=== PATIENT | female | born 1960 | race Caucasian/White ===

== ENCOUNTER 2018-01-09 14:21 | Inpatient (IN) | payer BC, OTHER ==
[~2018-01-09] VITALS: Ht 162.6 cm; Wt 64.9 kg
--- NOTE | ~2018-01-09 | EKG ---
[place] [address] [address] [place] [address] ELECTROCARDIOGRAM REPORT Name: IVIS RUEDA Room #: 411-P [facility] IN [facility].#: [id number] Admission: 01/09/18 Attend Phys: Dallas Mcguire MD Discharge: Date of : 56 Report #: [id number] THIS REPORT FOR: //name// [facility] ED Test Date: 2018-01-09 Test Time: 16:15:26 Pat Name: IVIS RUEDA Department: Room: Gender: F Director Economic: ÁNGEL : 1960 Requested By: Elena Dee Order Number: [id number] MD: Yossi Marrero Measurements Intervals [place] Rate: 96 P: 47 ND: 168 QRS: 22 QRSD: 107 T: 51 QT: 407 QTc: 515 Interpretive Statements Sinus rhythm Atrial premature complexes Compared to ECG 09/24/2015 05:40:43 Atrial premature complex(es) now present Prolonged QT interval no longer present Electronically Signed On 01-10-2018 7:36:12 CDT by Yossi Marrero [email or web address] <ELECTRONICALLY SIGNED> By: Yossi Marrero MD, [facility] 01/10/18 0736 1615 1615 Yossi Marrero MD, [facility] /EPI
--- NOTE | ~2018-01-09 | P ---
[facility] [place] [address] PROCEDURE REPORT Name: IVIS RUEDA Room #: 411-P [facility] IN .R.#: [id number] Admission: 01/09/18 Attend Phys: Dallas Mcguire MD Discharge: 01/12/18 Date of : 56 Report #: [id number] THIS REPORT FOR: //name// CC: Joel Mcguire MD [facility] DATE OF SERVICE: 01/10/2018 PROCEDURE PERFORMED: Upper endoscopy with esophageal dilation. HISTORY OF PRESENT ILLNESS: The patient is a 57-year-old female who is well known to me with a history of Crohn's disease who has been complaining of increasing dysphagia primarily for the last 10 days, does report some mild odynophagia at times. She denies any diarrhea. She does complain of constipation. Denies any blood in her stools. She is taking Imuran for her Crohn's disease. She is also on Coumadin. INR is 3.1. The patient was admitted yesterday through the Emergency Room for above complaints. A CT scan of her abdomen and pelvis was performed as well, which shows postoperative changes of partial bowel resection, but otherwise normal esophagus and stomach were normal. Fatty infiltration of the liver was noted without any masses. Spleen was unremarkable. Previous post-cholecystectomy changes were noted. Plan is for EGD. DESCRIPTION OF PROCEDURE: The risks and benefits of the procedure were explained to the patient, those risks including but not limited to bleeding, perforation, the risk of sedation. She understood these risks and gave informed consent. I also discussed with the patient performing a digital rectal exam once under anesthesia as she has a known history of anal stricture due to her Crohn's disease and she agreed to this as well. Next, using a standard Olympus upper endoscope, the scope was placed in the patient's mouth and advanced under direct vision through the esophagus, stomach and into the second portion of the duodenum. Larynx was normal in appearance. The upper and mid esophagus was normal. In the distal esophagus, a very mild Schatzki's ring was noted. No esophagitis. Upon entering the stomach, a small hiatal hernia was noted. There were a few gastric polyps, I was not able to take biopsies today due to the patient being on Coumadin. There was some mild diffuse gastritis in the gastric antrum. No ulcerations or bleeding. Pylorus was normal and patent. The duodenal bulb, first and second portion were all normal. The scope was then brought back up into the patient's stomach and a Savary guidewire was inserted through the scope, leaving the guidewire in place. Next, the scope was then withdrawn and a 48-Danish dilation of her esophagus was performed without difficulty. The wire and dilator were removed. The scope was reintroduced into [address] [address] PROCEDURE REPORT Name: RUEDAIVIS Room #: 411-P [facility] IN .R.#: [id number] Admission: 01/09/18 Attend Phys: Dallas Mcguire MD Discharge: 01/12/18 Date of : 56 Report #: [id number] the patient's stomach. There was no evidence of mucosal tear or bleeding after dilation. The scope was then withdrawn and the procedure terminated. I then proceeded with a digital rectal exam, although she has a mild stenosis of her anal canal, this is much improved than from previous exams. There was no evidence of fecal impaction in the rectum. The patient tolerated the procedure well. IMPRESSION: 1. Mild Schatzki's ring. 2. Small hiatal hernia. 3. Gastric polyps. 4. Mild gastritis. 5. Mild anal stricture on digital exam as described above. RECOMMENDATIONS: 1. Observe the patient post dilation. 2. Continue PPI therapy. 3. We will restart diet. If the patient has continued symptoms of dysphagia, then we will proceed with an upper GI or video swallow for further evaluation. Thank you for allowing me to participate in her care. <ELECTRONICALLY SIGNED> By: Joel Heaton MD 01/13/18 1538 1241 1805 Joel Heaton MD /nt
[~2018-01-09 14:21] MED LIST: ACIPHEX 20 MG T20 MG PO; AMITRIPTYLINE H25 M2 PO; ANALPRAM HC 2.530 GM RECTAL; ASPIR 8181 MG PO; CALCIUM 600 +1 EAC1 PO; CIPROFLOXACIN500 M1 PO; COUMADIN 3 MG TA3 M1 PO; DIAZEPAM 5 MG5 M1 PO; FENTANYL 1100 MCG/HR TOP; FENTANYL PA50 MCG/HR TRANSDERM; HYDROCODON-ACE1 EAC1 PO; HYDROCODONE-APA1 TA1 PO; IMURAN 50MG TAB50 M1 PO; KLOR-CON 1010 MEQ PO; LEVOTHYROXINE0.05 MG PO; LOMOTIL TABLET1 EACH PO; MAGNESIUM250 M1 PO; METHOCARBAMOL750 MG PO; NYSTATIN 1100000 U/M SW&SWALLOW; ONDANSETRON HCL4 M2 PO; PHENERGAN 25 MG25 M1 PO; POTASSIUM20 PO; PREDNISONE 10 M10 MG PO; ROBAXIN 750 MG750 M1 PO; SILVERDENE CREAM; TYLENOL325 MG PO; WELCHOL 625 MG625 M1 PO
[2018-01-09 15:21] VITALS: BP 141/78
[2018-01-09 18:24] LABS: ABSOLUTE NEUTROPHILS 5.3 thou/uL (1.4-8.2); EOSINOPHILS 0.3 % (0.0-3.0); HEMATOCRIT 41.6 % (37.0-47.0); HEMOGLOBIN 13.7 gm/dL (12.0-15.0); LYMPHOCYTES 14.9 % (24.0-44.0); MCH 30.6 pg (26.0-34.0); MCV 92.8 fL (80.0-100.0); MONOCYTES 6.3 % (1.0-8.0); PLATELET COUNT 200 thou/uL (150-400); POLYS 77.5 % (36.0-66.0); RBC 4.49 mil/uL (4.20-5.00); RDW 14.7 % (10.5-14.5); WBC 6.9 thou/uL (4.0-11.0)
[2018-01-09 18:35] LABS: ANION GAP 21 mmol/L (7-16); CHLORIDE 98 mmol/L (98-107); CO2 13 mmol/L (21-32); GLUCOSE 55 mg/dL (74-106); LIPASE 147 U/L (73-393); POTASSIUM 4.9 mmol/L (3.5-5.1); SODIUM 132 mmol/L (136-145)
[2018-01-09 19:08] LABS: TOTAL PROTEIN 7.3 g/dL (6.4-8.2)
[2018-01-09 19:51] LABS: CREATININE 0.9 mg/dL (0.6-1.0); POTASSIUM 4.1 mmol/L (3.5-5.1)
[2018-01-09 19:57] LABS: ALBUMIN 3.6 g/dL (3.4-5.0); TOTAL BILIRUBIN 0.4 mg/dL (<0.1-1.0); TOTAL PROTEIN 7.3 g/dL (6.4-8.2)
[2018-01-09 20:19] VITALS: BP 143/73
[2018-01-09 20:58] VITALS: BP 143/73
[2018-01-09 21:22] VITALS: BP 163/83
[2018-01-10] VITALS (8 sets, daily range): BP systolic 115–157; BP diastolic 58–102
[2018-01-10 03:47] LABS: URINE BILIRUBIN NEGATIVE (Negative); URINE BLOOD NEGATIVE (Negative); URINE CLARITY CLEAR; URINE COLOR YELLOW; URINE GLUCOSE-RANDOM* NEGATIVE (Negative); URINE KETONES 3+ (Negative); URINE LEUKOCYTES-REFLEX NEGATIVE (Negative); URINE NITRITE-REFLEX NEGATIVE (Negative); URINE PROTEIN (DIPSTICK) NEGATIVE (Negative); URINE SPECIFIC GRAVITY <= 1.005 (1.005-1.035); URINE UROBILINOGEN 0.2 E.U./dl (0.2-1.0)
[2018-01-10 07:00] LABS: CALCIUM 8.8 mg/dL (8.5-10.1); CREATININE 0.9 mg/dL (0.6-1.0); POTASSIUM 4.1 mmol/L (3.5-5.1)
[2018-01-10 07:13] LABS: APTT 46.6 Seconds (24.5-32.8); INR 3.1; PROTIME 31.2 Seconds (9.3-11.4)
[2018-01-11 04:00] VITALS: BP 115/65
[2018-01-11 09:00] VITALS: BP 115/65
[2018-01-11 20:24] VITALS: BP 114/54
[2018-01-12 04:56] VITALS: BP 112/56
[2018-01-12 06:03] LABS: HEMATOCRIT 33.6 % (37.0-47.0); MCH 31.3 pg (26.0-34.0); MCHC 34.8 g/dL (28.0-37.0); RBC 3.73 mil/uL (4.20-5.00); RDW 14.5 % (10.5-14.5); WBC 4.4 thou/uL (4.0-11.0)
[2018-01-12 06:12] LABS: HEMOGLOBIN 11.7 gm/dL (12.0-15.0)
[2018-01-12 06:18] LABS: INR 1.6
[2018-01-12 06:20] LABS: ALBUMIN 2.7 g/dL (3.4-5.0); CALCIUM 7.9 mg/dL (8.5-10.1); CREATININE 0.8 mg/dL (0.6-1.0); TOTAL BILIRUBIN 0.2 mg/dL (<0.1-1.0); TOTAL PROTEIN 5.8 g/dL (6.4-8.2)
[2018-01-12 06:21] LABS: POTASSIUM 2.8 mmol/L (3.5-5.1)
[2018-01-12 08:37] VITALS: BP 144/77
[2018-01-12 18:28] VITALS: BP 144/77
== END 2018-01-12 19:55 | disposition home or self-care (01) | DRG 387 ==
LOC: ER 14:21 → EROBS 20:00 → 4N 20:00
PROVIDERS: Emergency Medicine; Nurse Practitioner; Nurse Practitioner Family; Physician Assistant
PROC: 0D758ZZ Dilation of Esophagus, Via Natural or Artificial Opening Endoscopic (ICD-10-PCS; principal; 2018-01-10)
DX: K50.90 Crohn's disease, unspecified, without complications (principal); K29.70 Gastritis, unspecified, without bleeding; K62.4 Stenosis of anus and rectum; K44.9 Diaphragmatic hernia without obstruction or gangrene; Z96.653 Presence of artificial knee joint, bilateral; G89.29 Other chronic pain; M54.9 Dorsalgia, unspecified; M81.0 Age-related osteoporosis without current pathological fracture; F32.9 Major depressive disorder, single episode, unspecified; F41.9 Anxiety disorder, unspecified; E03.9 Hypothyroidism, unspecified; R47.02 Dysphasia; K22.2 Esophageal obstruction; K31.7 Polyp of stomach and duodenum; K21.9 Gastro-esophageal reflux disease without esophagitis; K59.00 Constipation, unspecified; R13.10 Dysphagia, unspecified; I34.1 Nonrheumatic mitral (valve) prolapse; Z86.73 Personal history of transient ischemic attack (TIA), and cerebral infarction without residual deficits; Z79.82 Long term (current) use of aspirin; Z90.49 Acquired absence of other specified parts of digestive tract; Z88.8 Allergy status to other drugs, medicaments and biological substances; Z79.899 Other long term (current) drug therapy
CPT/HCPCS: 10091; 62110; 62900; 70005

== ENCOUNTER 2018-12-12 08:56 | Emergency (ER) | payer BC, OTHER ==
[~2018-12-12] VITALS: Ht 162.6 cm; Wt 73.5 kg
[2018-12-12 09:29] LABS: URINE BLOOD NEGATIVE (Negative); URINE CLARITY CLEAR; URINE COLOR YELLOW; URINE GLUCOSE-RANDOM* NEGATIVE (Negative); URINE KETONES 2+ (Negative); URINE LEUKOCYTES NEGATIVE (Negative); URINE NITRITE NEGATIVE (Negative); URINE PROTEIN (DIPSTICK) TRACE (Negative); URINE SPECIFIC GRAVITY >= 1.030 (1.005-1.035); URINE UROBILINOGEN 0.2 E.U./dl (0.2-1.0)
[2018-12-12] MEDS ORDERED: ACIPHEX 20 MG T20 MG PO (09:30)
[2018-12-12] MEDS ORDERED: LIPITOR 20 MG T20 M1 PO (09:32)
[2018-12-12 09:33] LABS: ICTOTEST (BILI CONFIRMATORY) Negative (Negative); URINE BILIRUBIN NEGATIVE (Negative)
[2018-12-12 09:40] LABS: HEMATOCRIT 42.1 % (37.0-47.0); MCH 29.8 pg (26.0-34.0); MCHC 33.3 g/dL (28.0-37.0); MCV 89.6 fL (80.0-100.0); PLATELET COUNT 190 thou/uL (150-400); RDW 15.3 % (10.5-14.5); WBC 5.1 thou/uL (4.0-11.0)
[2018-12-12 09:47] LABS: CALCIUM 9.5 mg/dL (8.5-10.1)
[2018-12-12 09:53] LABS: ALBUMIN 3.9 g/dL (3.4-5.0); TOTAL BILIRUBIN 0.6 mg/dL (<0.1-1.0); TOTAL PROTEIN 7.8 g/dL (6.4-8.2)
[2018-12-12 10:23] LABS: ABSOLUTE NEUTROPHILS 4.2 thou/uL (1.4-8.2); ANISOCYTOSIS 1+
[2018-12-12 10:26] LABS: INR 1.3; PROTIME 13.5 Seconds (9.3-11.4)
[2018-12-12] MEDS ORDERED: PREDNISONE 5 MG5 MG PO (13:34)
[2018-12-12 13:42] VITALS: BP 144/75
== END 2018-12-12 13:42 | disposition home or self-care (01) ==
LOC: ER 08:56
PROVIDERS: Emergency Medicine
DX: K50.90 Crohn's disease, unspecified, without complications (principal); K22.2 Esophageal obstruction; M54.9 Dorsalgia, unspecified; G89.29 Other chronic pain; M81.0 Age-related osteoporosis without current pathological fracture; F32.9 Major depressive disorder, single episode, unspecified; F41.9 Anxiety disorder, unspecified; E03.9 Hypothyroidism, unspecified; Z86.73 Personal history of transient ischemic attack (TIA), and cerebral infarction without residual deficits; Z88.1 Allergy status to other antibiotic agents; Z88.8 Allergy status to other drugs, medicaments and biological substances; Z90.49 Acquired absence of other specified parts of digestive tract; Z90.89 Acquired absence of other organs; Z96.653 Presence of artificial knee joint, bilateral

== ENCOUNTER 2019-02-27 10:54 | Inpatient (IN) | payer BC, OTHER ==
[~2019-02-27] VITALS: Ht 162.6 cm; Wt 70.3 kg
[~2019-02-27 10:54] MED LIST changes: +LIPITOR 20 MG T20 M1 PO; +PREDNISONE 5 MG5 MG PO
[2019-02-27 10:55] VITALS: BP 159/91
[2019-02-27 11:20] LABS: URINE BILIRUBIN NEGATIVE (Negative); URINE BLOOD NEGATIVE (Negative); URINE CLARITY CLEAR; URINE COLOR YELLOW; URINE GLUCOSE-RANDOM* NEGATIVE (Negative); URINE KETONES NEGATIVE (Negative); URINE LEUKOCYTES-REFLEX NEGATIVE (Negative); URINE NITRITE-REFLEX NEGATIVE (Negative); URINE PROTEIN (DIPSTICK) NEGATIVE (Negative); URINE SPECIFIC GRAVITY <= 1.005 (1.005-1.035); URINE UROBILINOGEN 0.2 E.U./dl (0.2-1.0)
[2019-02-27 12:16] LABS: ABSOLUTE NEUTROPHILS 2.7 thou/uL (1.4-8.2); BASOPHILS 1.7 % (0.0-2.0); EOSINOPHILS 0.4 % (0.0-3.0); HEMATOCRIT 37.2 % (37.0-47.0); HEMOGLOBIN 12.6 gm/dL (12.0-15.0); MCH 30.7 pg (26.0-34.0); MCV 90.1 fL (80.0-100.0); MONOCYTES 7.3 % (1.0-8.0); PLATELET COUNT 192 thou/uL (150-400); POLYS 70.6 % (36.0-66.0); RBC 4.13 mil/uL (4.20-5.00); RDW 16.4 % (10.5-14.5); WBC 3.8 thou/uL (4.0-11.0)
[2019-02-27 12:25] LABS: CALCIUM 9.2 mg/dL (8.5-10.1); CREATININE 0.9 mg/dL (0.6-1.0); POTASSIUM 3.8 mmol/L (3.5-5.1)
[2019-02-27 12:26] LABS: INR 2.3; PROTIME 24.1 Seconds (9.3-11.4)
[2019-02-27 12:31] LABS: ALBUMIN 3.7 g/dL (3.4-5.0); TOTAL BILIRUBIN 0.5 mg/dL (<0.1-1.0); TOTAL PROTEIN 6.8 g/dL (6.4-8.2)
[2019-02-27 15:26] LABS: ALBUMIN 3.7 g/dL (3.4-5.0); TOTAL PROTEIN 6.8 g/dL (6.4-8.2)
[2019-02-27 15:51] LABS: TSH 1.489 uIU/mL (0.358-3.740)
[2019-02-27 23:47] VITALS: BP 153/103
[2019-02-28 00:16] VITALS: BP 141/89
[2019-02-28 01:51] VITALS: BP 141/72
--- NOTE | 2019-02-28 03:30 | NUR ---
patient admitted for abd pain d/t chrohns disease. patient denied pain or discomfort during assessment. patient ambulates slowly in the room with steady gaits. patient refused scds. patient refused hs tray d/t poor appetite. patient encouraged fluids. patient requested tylenol d/t headache at around 0300, called ceo new order of tylenol. patient in bed asleep at this time breathing regular and unlaboured.
[2019-02-28 04:10] VITALS: BP 140/79
[2019-02-28 05:42] LABS: HEMATOCRIT 40.7 % (37.0-47.0); HEMOGLOBIN 13.7 gm/dL (12.0-15.0); MCH 30.6 pg (26.0-34.0); MCHC 33.7 g/dL (28.0-37.0); MCV 90.7 fL (80.0-100.0); RBC 4.49 mil/uL (4.20-5.00); RDW 16.6 % (10.5-14.5); WBC 4.6 thou/uL (4.0-11.0)
[2019-02-28 06:06] LABS: CALCIUM 9.3 mg/dL (8.5-10.1); CREATININE 0.9 mg/dL (0.6-1.0); MAGNESIUM 1.9 mg/dL (1.8-2.4); POTASSIUM 3.6 mmol/L (3.5-5.1)
[2019-02-28 07:21] VITALS: BP 134/72
--- NOTE | 2019-02-28 08:28 | 2DMMODE ---
[facility] [address] [place] [address] 2 D/M-MODE ECHOCARDIOGRAM Name: IVIS RUEDA Room #: 450-P [facility] IN [facility].#: [id number] ������������� Admission: 02/27/19 ������������� Attend Phys: Stiven Rowan, Discharge: ��� ������������� ��� Date of : 56 Date of Service: 02/28/19 0828 �� Report #: [id number] �������� ��������������������������������������������[id number] THIS REPORT FOR: //name// APPROVED REPORT Study performed: 02/28/2019 06:18:37 EXAM: Comprehensive 2D, Doppler, and color-flow Echocardiogram Patient Location: Bedside Room #: [facility] Status: routine BSA: 1.76 HR: 68 bpm BP: 140/79 mmHg Rhythm: NSR Other Information Study Quality: Adequate Indications History of mitral valve prolapse, possible SVC occlusion. 2D Dimensions RVDd: 23.08 mm IVSd: 10.21 (7-11mm) LVOT Diam: 20.38 (18-24mm) LVDd: 41.04 mm PWd: 8.14 (7-11mm) Ascending Ao: 32.38 (22-36mm) LVDs: 23.81 (25-40mm) Aortic Root: 32.58 mm Volumes Left Atrial Volume (Systole) Single Plane 4CH: 23.46 mL Single Plane 2CH: 31.24 mL LA ESV Index: 17.00 mL/m2 Aortic Valve AoV Peak Martin.: 1.35 m/s AO Peak Gr.: 7.32 mmHg LVOT Max P.36 mmHg LVOT Max V: 1.26 m/s LINETTE Vmax: 3.04 cm2 Mitral Valve E/A Ratio: 0.8 MV Decel. Time: 272.91 ms MV E Max Martin.: 0.67 m/s [facility] [employer] [address] [place] [address] [place] [address] 2 D/M-MODE ECHOCARDIOGRAM Name: IVIS RUEDA Room #: [address] [place] [address] IN [facility].#: [id number] ������������� Admission: 02/27/19 ������������� Attend Phys: Stiven Rowan, Discharge: ��� ������������� ��� Date of : 56 Date of Service: 02/28/19 0828 �� Report #: [id number] �������� ��������������������������������������������[id number] MV A Martin.: 0.83 m/s MV PHT: 79.15 ms IVRT: 79.58 ms Pulmonary Valve PV Peak Martin.: 1.00 m/s PV Peak Gr.: 3.99 mmHg Pulmonary Vein P Vein S: 0.52 m/s P Vein A: 0.32 m/s P Vein D: 0.35 m/s P Vein A Dur.: 121.1 msec P Vein S/D Ratio: 1.49 Tricuspid Valve TR Peak Martin.: 1.76 m/s RAP Estimate: 5.00 mmHg TR Peak Gr.: 12.37 mmHg PA Pressure: 17.00 mmHg Left Ventricle The left ventricle is normal size. There is normal LV segmental wall motion. There is normal left ventricular wall thickness. Left ventricular systolic function is normal. LVEF is 60-65%. Mild diastolic dysfunction Right Ventricle The right ventricle is normal size. The right ventricular systolic function is normal. Atria The left atrium size is normal. The right atrium size is normal. Aortic Valve Aortic valve is trileaflet. No aortic regurgitation is present. There is no aortic valvular stenosis. Mitral Valve Minimal mitral annular calcification. There is no mitral valve regurgitation noted. There is no evidence of mitral valve prolapse. Tricuspid Valve The tricuspid valve is normal in structure. Trace tricuspid regurgitation. Estimated PAP is 17mmHg. Pulmonic Valve Pulmonic valve is not well visualized. There is no pulmonic valvular [address] [address] 2 D/M-MODE ECHOCARDIOGRAM Name: IVIS RUEDA Joe Room #: 450-P [facility] IN [facility]#: [id number] ������������� Admission: 02/27/19 ������������� Attend Phys: Stiven Rowan, Discharge: ��� ������������� ��� Date of : 56 Date of Service: 02/28/19 0828 �� Report #: [id number] �������� ��������������������������������������������[id number] regurgitation noted. Great Vessels The aortic root is normal in size. The ascending aorta is normal in size. IVC is normal in size and collapses >50% with inspiration. Pericardium There is no pericardial effusion. <Conclusion> Left ventricular systolic function is normal. LVEF is 60-65%. Normal LV segmental wall motion. Mild diastolic dysfunction Aortic valve is trileaflet. No aortic regurgitation. Minimal mitral annular calcification. No mitral valve regurgitation. Trace tricuspid regurgitation. Estimated pulmonary artery pressure of 17mmHg. There is no pericardial effusion. ��������������������������������������������� <ELECTRONICALLY SIGNED> ���������������������������������������� By: Yossi Marrero MD, [facility] ��������������������������������������������� 02/28/19827 7 7 Yossi Marrero MD, FAC /INF
--- NOTE | 2019-02-28 09:56 | NUR ---
ORDER RECEIVED FOR OT EVAL AND TREAT. PATIENT DECLINES ACUTE OT STATING THAT SHE IS INDEPENDENT WITH SELF CARE AND FUNCTIONAL MOBILITY. ACCORDING TO PT AND NURSING NOTES, PT HAS BEEN UP AD LAINE IN ROOM WITH GOOD SAFETY. DISCHARGE FROM ACUTE OT 02/28/2019
[2019-02-28 12:10] LABS: INR 1.7; PROTIME 17.4 Seconds (9.3-11.4)
--- NOTE | 2019-02-28 12:21 | NUR ---
ORDERS RECEIVED FOR PT EVAL AND TREAT. ENTERED ROOM TO SPEAK WITH Pt. Pt HAS BEEN UP AD LAINE TO BATHROOM WITHOUT DIFFICULTIES. COMMODE NEARBY BED FOR EMERGENCIES, Pt STATED SHE SOMETIMES HAS TO GO QUICKLY. HX OF CROHNS DISEASE FOR THE PAST 36 YEARS. Pt STATED SHE DOES NOT WORK. LIVES WITH IN HOME WITH 8-10 STEPS TO ENTER FROM GARAGE AND 10-12 STEPS UP TO BEDROOM AND BATHROOM. AMBULATORY WITHOUT GAIT AIDS. INDEP WITH ADLs. REPORTED NO RECENT FALLS. Pt STATED, I DON'T NEED PHYSICAL THERAPY. THIS TIME I GOT HERE BEFORE IT GOT TOO BAD. ENCOURAGED Pt TO AMBULATE IN HALLWAYS TOLERATED FOR INCREASED ACTIVITY. Pt VERBALIZED UNDERSTANDING. NO ACUTE PT NEEDS IDENTIFIED AND Pt DECLINING PT SERVICES. ACUTE PT TO SIGN OFF. IF Pt EXPERIENCES DECLINE IN FUNCTIONAL MOBILITY, ENDURANCE, BALANCE, ETC, PLEASE CONSIDER RE-CONSULTING PT.
[2019-02-28 14:44] VITALS: BP 139/61
[2019-02-28] MEDS ORDERED: COUMADIN 3 MG TA3 M1 PO (15:11)
--- NOTE | 2019-02-28 20:23 | NUR ---
Assumed pt care this am, refused her medication in the am and wanted to talk to the doctor prior to receiving them. Pt is able to ambulate in her room with a steady gait. Pt has poor appetite and did not comsume most of her meals. Pt was placed on clear liquids by GI and to be NPO after midnight to night for her colonoscopy tomorrow. Bowel prep done. Pt has been passing bright yellow liquid stools. No other signs of distress have been noted or verbalized, POC rollyweshaneka. Consent signed for the procedure tomorrow.
[2019-03-01 05:58] LABS: HEMATOCRIT 38.7 % (37.0-47.0); HEMOGLOBIN 13.1 gm/dL (12.0-15.0); MCH 30.2 pg (26.0-34.0); MCHC 33.8 g/dL (28.0-37.0); MCV 89.4 fL (80.0-100.0); RBC 4.33 mil/uL (4.20-5.00); RDW 16.5 % (10.5-14.5); WBC 8.3 thou/uL (4.0-11.0)
[2019-03-01 06:06] LABS: CALCIUM 9.4 mg/dL (8.5-10.1); CREATININE 0.9 mg/dL (0.6-1.0); MAGNESIUM 2.1 mg/dL (1.8-2.4); POTASSIUM 3.3 mmol/L (3.5-5.1)
[2019-03-01 06:10] LABS: INR 1.6; PROTIME 16.5 Seconds (9.3-11.4)
[2019-03-01 07:59] VITALS: BP 138/74
--- NOTE | 2019-03-01 09:15 | NUR ---
PROGRESS PT A/O X4 UP WITH SBA, IV SL FLUSHES WITHOUT DIFFICULTY. COMPLETED 90% OF BOWEL PREP STOOL IS WATER CLEAR WITH TINGE OF YELLOW. PT DENIES PAIN VOIDING QS NPO AFTER MIDNIGHT VSS CONTINUE POC.
[2019-03-01 13:49] VITALS: BP 138/74
[2019-03-01 15:42] VITALS: BP 138/74
[2019-03-01 15:47] VITALS: BP 127/65
--- NOTE | 2019-03-01 16:47 | NUR ---
PT ADMITTED RELATED TO CHRONS. CM REVIEWED CHART AND SPOKE WITH CARE TEAM. CM MET WITH PT AT BEDSIDE THIS DAY. PT IS A&O X4. CM ROLE INTRODUCED. PT INDICATED SHE LIVES IN A HOUSE WITH HER SPOUSE WITH 10 STEPS TO ENTER AND NO STEPS INSIDE. 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 PT INDICATED NO DME OR HH HX. PT STATED SHE PLANS TO RETURN HOME ONCE MEDICALLY STABLE. CM TO TO FOLLOW INDICATED WITH DC PLANNING.
[2019-03-01 19:23] VITALS: BP 136/72
[2019-03-02 05:21] LABS: HEMATOCRIT 34.6 % (37.0-47.0); HEMOGLOBIN 11.8 gm/dL (12.0-15.0); MCHC 34.2 g/dL (28.0-37.0); MCV 90.9 fL (80.0-100.0); RBC 3.8 mil/uL (4.20-5.00); RDW 16.5 % (10.5-14.5); WBC 8.6 thou/uL (4.0-11.0)
[2019-03-02 05:32] LABS: CALCIUM 8.4 mg/dL (8.5-10.1); CREATININE 0.8 mg/dL (0.6-1.0); MAGNESIUM 1.9 mg/dL (1.8-2.4); POTASSIUM 3.6 mmol/L (3.5-5.1)
--- NOTE | 2019-03-02 08:31 | NUR ---
PROGRESS PT A/O X4 UP AD LAINE, LUNGS CLEAR ABDOMEN SOFT AND NON TENDER, PASSING FLATUS AND URINATING QS. TOLERATING SOFT FIBER RESTRICTED DIET, SOLUMEDROL CONTINUES, IVF'S INFUSING TO MAINTAIN HYDRATION. SKIN C/D/I NO AREAS OF BREAKDOWN NOTED. PLANS TO DC HOME TODAY.
--- NOTE | 2019-03-02 08:43 | P ---
[facility] [place] [address] PROCEDURE REPORT Name: IVIS RUEDA Room #: 450-P [facility] IN M.R.#: [id number] Admission: 02/27/19 ������������������ Attend Phys: Stiven Rowan MD Discharge: ������������������ Date of : 56 Report #: [id number] THIS REPORT FOR: //name// CC: Mouna Rowan MD DATE OF SERVICE: 03/01/2019 DIAGNOSTIC COLONOSCOPY She is a patient of Dr. Mouna Cabral and Dr. Stiven Rowan. INDICATIONS FOR PROCEDURE: This patient has what appears to be an apple core lesion seen in the sigmoid colon on CT scan. She has not had a scope for about 4-5 years. She has a history of Crohn's disease. She has had a right hemicolectomy because of her Crohn's disease, and more recently, she has had anorectal stenosis and constipation. DESCRIPTION OF PROCEDURE: Informed consent for this procedure was obtained prior to the administration of any medication. The risks of the procedure include but are not limited to bleeding, perforation, infection, complications of sedation and the possibility I could miss something, and she has indicated her consent by signing. Anesthesia kindly provided deep sedation for this procedure. With the patient in the left lateral decubitus position, a digital rectal exam was performed and there was no stricture in the anal canal or in the distal rectum. Then, the Olympus colonoscope was introduced through the anal sphincter and advanced under direct visualization to the ileocolonic anastomosis. Findings are noted on withdrawal of the scope. The ileocolonic anastomosis appears widely patent and is not inflamed. There are no ulcerations or erythema anywhere. The ileal side of the anastomosis appears entirely normal as does the colonic side of the anastomosis. The scope was then slowly withdrawn. The visualized portions of the transverse colon appeared normal. Stool was cleared from this area to adequately visualize the entire transverse colon. Splenic flexure, normal mucosa. Descending colon, normal mucosa. Sigmoid colon, normal mucosa. I saw no evidence of an apple core lesion in the entire sigmoid colon. In the rectum, there was some very mild proctitis. 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 I do not see any evidence of any anorectal narrowing. I attempted to retroflex in the rectum, but was unsuccessful, which may indicate that there is some actual narrowing in the rectum, though it is not grossly obvious. The scope was then withdrawn slowly through the anal canal. No other [address] [address] PROCEDURE REPORT Name: IVIS RUEDA Joe Room #: 450-P [facility] IN ..#: [id number] Admission: 02/27/19 ������������������ Attend Phys: Stiven Rowan MD Discharge: ������������������ Date of : 56 Report #: [id number] abnormalities are seen. The scope was withdrawn. The patient went to the recovery area in stable condition. She tolerated the procedure well. IMPRESSION: 1. Proctitis. 2. Otherwise, normal colonoscopic exam to the ileocolonic anastomosis. 3. There may be some distal rectal very mild narrowing, but certainly no anal stricture is seen. My recommendations were for her to continue on her current regimen. There was no evidence of any type of apple core lesion in the sigmoid colon. Thank you very much once again for allowing me to participate in her care. We will start her on a soft diet, and she will probably be able to discharge home soon. Thank you very much once again for allowing me to participate in her care, Dr. Cabral and Dr. Rowan. ��������������������������������������������� <ELECTRONICALLY SIGNED> ���������������������������������������� By: Chapis Gaston DO ��������������������������������������������� 03/02/19 0843 1225 0203 Chapis Gaston DO /nt
[2019-03-02 08:47] VITALS: BP 142/79
[2019-03-02] MEDS ORDERED: PREDNISONE 5 MG5 MG PO (13:03)
[2019-03-02 14:55] VITALS: BP 144/75
--- NOTE | 2019-03-02 17:35 | NUR ---
Assumed pt care this am, pt is up at shweta and states she is feeling so much better. Soft fiber restricted diet is well tolerated, pain mamaged with medication. POC followed VS stable no signs of distress have been noted nor verbalized by the pt. Seen by MS and GI, pt has been DC. Prescriptions and instructions given to the pt. IV removed. Pt is now dc, was picked up by her daughter and .
== END 2019-03-02 18:39 | disposition home or self-care (01) | DRG 386 ==
LOC: ER 10:54 → EROBS 13:23 → 4W 13:23 → EROBS 15:26 → 4W 02-28 00:16
PROVIDERS: Nurse Practitioner; Physician Assistant; ADMIT Internal Medicine
PROC: 0DJD8ZZ Inspection of Lower Intestinal Tract, Via Natural or Artificial Opening Endoscopic (ICD-10-PCS; principal; 2019-03-01)
DX: K50.10 Crohn's disease of large intestine without complications (principal); I82.210 Acute embolism and thrombosis of superior vena cava; I82.290 Acute embolism and thrombosis of other thoracic veins; E03.9 Hypothyroidism, unspecified; F32.9 Major depressive disorder, single episode, unspecified; Z96.653 Presence of artificial knee joint, bilateral; K62.89 Other specified diseases of anus and rectum; M81.0 Age-related osteoporosis without current pathological fracture; I34.1 Nonrheumatic mitral (valve) prolapse; F41.1 Generalized anxiety disorder; Z90.49 Acquired absence of other specified parts of digestive tract; Z87.01 Personal history of pneumonia (recurrent); Z86.73 Personal history of transient ischemic attack (TIA), and cerebral infarction without residual deficits; Z86.718 Personal history of other venous thrombosis and embolism; Z79.01 Long term (current) use of anticoagulants; Z79.82 Long term (current) use of aspirin; Z79.899 Other long term (current) drug therapy; Z88.8 Allergy status to other drugs, medicaments and biological substances
CPT/HCPCS: 10040; 62110; 62900; 70005

== ENCOUNTER → 2019-09-25 | Outpatient (CLI) | payer BC, OTHER | LOC: RAD 10:44 | DX: R10.9 Unspecified abdominal pain (principal); K56.41 Fecal impaction ==

== ENCOUNTER 2019-10-02 14:14 | Inpatient (IN) | payer BC, OTHER ==
[~2019-10-02] VITALS: Ht 162.6 cm; Wt 66.2 kg
[2019-10-02 14:15] VITALS: BP 149/83
[2019-10-02 15:22] LABS: URINE BILIRUBIN NEGATIVE (Negative); URINE BLOOD NEGATIVE (Negative); URINE CLARITY CLEAR; URINE COLOR YELLOW; URINE GLUCOSE-RANDOM* NEGATIVE (Negative); URINE KETONES NEGATIVE (Negative); URINE LEUKOCYTES-REFLEX TRACE (Negative); URINE NITRITE-REFLEX NEGATIVE (Negative); URINE PROTEIN (DIPSTICK) NEGATIVE (Negative); URINE SPECIFIC GRAVITY <= 1.005 (1.005-1.035); URINE UROBILINOGEN 0.2 E.U./dl (0.2-1.0)
[2019-10-02 15:59] LABS: ABSOLUTE NEUTROPHILS 3.6 thou/uL (1.4-8.2); BASOPHILS 0.7 % (0.0-2.0); EOSINOPHILS 0.3 % (0.0-3.0); HEMATOCRIT 37.4 % (37.0-47.0); HEMOGLOBIN 12.3 gm/dL (12.0-15.0); LYMPHOCYTES 15.6 % (24.0-44.0); MCH 29.7 pg (26.0-34.0); MCV 90.1 fL (80.0-100.0); MONOCYTES 6.4 % (1.0-8.0); PLATELET COUNT 229 thou/uL (150-400); RBC 4.15 mil/uL (4.20-5.00); RDW 16.8 % (10.5-14.5); WBC 4.7 thou/uL (4.0-11.0)
[2019-10-02 16:15] LABS: ANION GAP 9 mmol/L (7-16); BUN 7 mg/dL (7-18); CALCIUM 9.1 mg/dL (8.5-10.1); CHLORIDE 102 mmol/L (98-107); CO2 27 mmol/L (21-32); CREATININE 0.9 mg/dL (0.6-1.0); GLUCOSE 84 mg/dL (74-106); POTASSIUM 3.6 mmol/L (3.5-5.1); SODIUM 138 mmol/L (136-145)
[2019-10-02 16:25] LABS: ALBUMIN 3.8 g/dL (3.4-5.0); LIPASE 128 U/L (73-393); SGOT 21 U/L (15-37); SGPT 11 U/L (30-65); TROPONIN-I <0.06 ng/mL (<0.06)
[2019-10-02 18:14] VITALS: BP 154/88
[2019-10-02 18:26] VITALS: BP 141/60
[2019-10-02 19:18] LABS: INR 1.5; PROTIME 15.6 Seconds (9.3-11.4)
[2019-10-02 22:30] VITALS: BP 146/69
[2019-10-03 03:25] VITALS: BP 122/71
[2019-10-03 05:36] LABS: HEMATOCRIT 38.6 % (37.0-47.0); HEMOGLOBIN 12.7 gm/dL (12.0-15.0); MCHC 32.8 g/dL (28.0-37.0); MCV 91.5 fL (80.0-100.0); RBC 4.22 mil/uL (4.20-5.00); RDW 17.1 % (10.5-14.5); WBC 3.4 thou/uL (4.0-11.0)
[2019-10-03 06:04] LABS: CALCIUM 8.7 mg/dL (8.5-10.1); CREATININE 0.8 mg/dL (0.6-1.0)
[2019-10-03 07:22] VITALS: BP 137/83
--- NOTE | 2019-10-03 08:02 | NUR ---
PT TO UNIT AROUND 1900. ADMISISON ASSESSMENT COMPLETED. ORIENTED TO UNIT, STAFF AND USE OF CALL LIGHT. PT IS UP AD LAINE AND NO FALL RISK. HAS BEEN HERE FRE FOR HER CROHNS FLARE UPS. PAIN BEING MANAGED WITH IV PAIN MEDS. ON CLEAR LIQUIDS, ALTHOUGH HAS NO DESIRE TO EAT. CONSENTS SIGNED AND IN CHART. REFUSED SCDS. FLUIDS INFUSING PER ORDER. PT TAKES REGULAR COUMADIN AT HOME, AND HAS VALUES CHECKED REGULARLY DUE TO HX OF STROKE. NO DIARRHEA OVERNIGHT. VSS.
--- NOTE | 2019-10-03 08:11 | EKG ---
[facility] [place] [address] ELECTROCARDIOGRAM REPORT Name: IVIS RUEDA Room #: [facility]- ADM IN M.R.#: [id number] Admission: 10/02/19 Attend Phys: Frederic Davenport MD Discharge: Date of : 56 Report #: [id number] THIS REPORT FOR: cc: Joel Heaton MD, Christian C. MD Lundgren,Yossi Live MD [facility] ~ THIS REPORT FOR: //name// [facility] ED Test Date: 2019-10-02 Test Time: 14:56:45 Pat Name: IVIS RUEDA Department: Room: [facility] Gender: F Plant Facilities Technician: ANTWAN : 1960 Requested By: James Merritt Order Number: [id number] MD: Yossi Marrero Measurements Intervals [place] Rate: 73 P: 55 RI: 149 QRS: 15 QRSD: 107 T: 49 QT: 399 QTc: 440 Interpretive Statements Sinus rhythm No significant abnormality Compared to ECG 01/09/2018 16:15:26 Atrial premature complex(es) no longer present Electronically Signed On 10-03-2019 8:10:05 [employer]ALTH E[employer]IST by Yossi Marrero [email or web address] <ELECTRONICALLY SIGNED> By: Yossi Marrero MD, [facility] 10/03/19 0810 1456 1456 Yossi Marrero MD, [facility] /EPI
[2019-10-03 11:40] VITALS: BP 142/79
[2019-10-03 16:00] VITALS: BP 133/78
--- NOTE | 2019-10-03 16:35 | NUR ---
PT ADMITTED RELATED TO CROHNS FLARE UP. CM REVIEWED CHART AND SPOKE WITH CARE TEAM. CM MET WITH PT AT BEDSIDE THIS DAY. PT IS A&O X4. CM ROLE INTRODUCED. PT INDICATED SHE LIVES IN A HOUSE WITH HER SIG OTHER WITH 8 STEPS TO ENTER AND 8 STEPS INSIDE. 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 PT INIDCATED SHE HAD HH 10-12 YRS AGO WHEN SHE HAD HER KNEE DONE. PT INDICATED SHE PLANS TO RETUN HOME [place] MEDICALLY STABLE. CM TO FOLLOW INDICATED WITH DC PLANNING.
--- NOTE | 2019-10-03 21:01 | NUR ---
Assumed care of pt at 0700. Pt a&ox4. Up ad shweta. GI consulted. Stool sample to collected. No BM during day shift. Pain controlled with prn pain meds. IVF discontinued. Call light within reach.
--- NOTE | 2019-10-04 04:28 | NUR ---
ASSESSMENT COMPLETED.PT OBSERVED WALKING TO HER BR AT START OF SHIFT WITH STEADY GAIT.PT C/O PAIN ON HER BACK AND ABD,MANAGED WITH MED.NO BM SO FAR THIS SHIFT,STILL NEEDS A STOOL SAMPLE.ISOLATION PRECAUTION MAINTAINED FOR PRESUMPTIVE CDIFF.CALL LIGHT WITHIN REACH.
[2019-10-04 04:55] VITALS: BP 142/78
[2019-10-04 05:54] LABS: PROTIME 24.1 Seconds (9.3-11.4)
[2019-10-04 05:55] LABS: INR 2.3
[2019-10-04 07:40] VITALS: BP 117/53
--- NOTE | 2019-10-04 11:27 | NUR ---
PT CARE ASSUMED AT 0700. A&Ox4. PT IS UP INDEPENDENTLY IN THE ROOM. ISOLATION PROTOCOLL MAINTAINED PENDING CDIFF RESULTS. PT IS ACHS DUE TO IV PREDNISONE. PT HAS HAD NO BM ALL DAY AND I WAS NOT ABLE TO COLLECT A STOOL SAMPLE FOR CDIFF LABS. IV IS PATENT WITH NO REDNESS OR EDEMA. SALINE LOCKED. HEATING BLANKET ON ABDOMEN FOR ABDOMINAL PAIN. CALL LIGHT IN REACH. WILL CONTINUE TO MONITOR.
[2019-10-04 19:50] VITALS: BP 112/49
--- NOTE | 2019-10-05 03:21 | NUR ---
RECIEVED CARE OF PATIENT AT 1900. PATIENT ALERT AND ORIENTED X4. TALKED AT LENGTH TO PATIENT ABOUT THINGS GOING ON IN HER LIFE. LISTENED TO PATIENT DESCRIBE WHAT SHE WAS GOING THROUGH EMOTIONALLY. PATIENT DENIES PAIN, N/V AND DIARRHEA. STATES SHE IS CONSTIPATED BUT DOES NOT WANT ANYTHING UNTIL SHE GETS HOME IN CASE SHE HAS AN ACCIDENT. IS CONCERNED ABOUT HER BOWELS. PATIENT UP AD LAINE. SLEPT LITTLE THIS SHIFT.
[2019-10-05 06:41] LABS: INR 2.2; PROTIME 22.1 Seconds (9.3-11.4)
[2019-10-05] MEDS ORDERED: PREDNISONE 5 MG5 M1 PO (08:29)
[2019-10-05 12:16] VITALS: BP 112/49
--- NOTE | 2019-10-05 14:47 | NUR ---
CARE TEAM INDIATED THAT PT IS MEDICALLY STABLE TO DC HOME THIS DAY. PT IS TO DC HOME TO SELF CARE. NO OTHER CM INTERVENTION INDICATED. CASE CLOSED.
--- NOTE | 2019-10-05 16:11 | NUR ---
Assumed care of pt at 0700. Pt a&ox4. Tolerated diet well. C/o abd pain. Ok by GI to give patient one dose of morphine prior to discharge. Predinisone prescription written by GI OIL WELL SHOOTER and handed to patient by nurse. Call light within reach. Pt discharging to home.
== END 2019-10-05 16:15 | disposition home or self-care (01) | DRG 387 ==
LOC: ER 14:14 → 4S 17:55 → EROBS 17:55 → 4S 18:59
PROVIDERS: Emergency Medicine; Nurse Practitioner; ADMIT Hospitalist
DX: K50.90 Crohn's disease, unspecified, without complications (principal); G89.29 Other chronic pain; M54.9 Dorsalgia, unspecified; M81.0 Age-related osteoporosis without current pathological fracture; F32.9 Major depressive disorder, single episode, unspecified; F41.9 Anxiety disorder, unspecified; E03.9 Hypothyroidism, unspecified; K52.9 Noninfective gastroenteritis and colitis, unspecified; E86.0 Dehydration; K22.2 Esophageal obstruction; Z90.49 Acquired absence of other specified parts of digestive tract; Z86.73 Personal history of transient ischemic attack (TIA), and cerebral infarction without residual deficits; Z88.1 Allergy status to other antibiotic agents; Z88.8 Allergy status to other drugs, medicaments and biological substances; Z79.01 Long term (current) use of anticoagulants; Z79.899 Other long term (current) drug therapy
CPT/HCPCS: 10195

== ENCOUNTER 2021-08-25 16:38 | Inpatient (IN) | payer BC, OTHER ==
[~2021-08-25] VITALS: Ht 162.6 cm; Wt 65.8 kg
[~2021-08-25 16:38] MED LIST changes: +FLEXERIL PO; +PREDNISONE 5 MG5 M1 PO; +WARFARIN SODIUM2 MG PO; +WARFARIN SODIUM4 MG PO
[2021-08-25 16:41] VITALS: BP 145/59
[2021-08-25 17:24] LABS: ABSOLUTE NEUTROPHILS 5.4 thou/uL (1.4-8.2); BASOPHILS 1.3 % (0.0-2.0); EOSINOPHILS 0.3 % (0.0-3.0); HEMOGLOBIN 10.8 gm/dL (12.0-15.0); LYMPHOCYTES 10.4 % (24.0-44.0); MCH 26.8 pg (26.0-34.0); MCHC 31.9 g/dL (28.0-37.0); MONOCYTES 7.8 % (1.0-8.0); PLATELET COUNT 286 thou/uL (150-400); POLYS 80.2 % (36.0-66.0); RBC 4.05 mil/uL (4.20-5.00); RDW 16.9 % (10.5-14.5); WBC 6.7 thou/uL (4.0-11.0)
[2021-08-25 17:28] LABS: CALCIUM 9.1 mg/dL (8.5-10.1); CREATININE 0.9 mg/dL (0.6-1.0); POTASSIUM 3.3 mmol/L (3.5-5.1)
[2021-08-25 17:35] LABS: ALBUMIN 3.4 g/dL (3.4-5.0); TOTAL BILIRUBIN 0.6 mg/dL (0.2-1.0); TOTAL PROTEIN 7.2 g/dL (6.4-8.2)
[2021-08-25 23:59] LABS: INR 2.81; PROTIME 29.2 Seconds (10.5-12.1)
[2021-08-26 04:18] LABS: HEMATOCRIT 31.6 % (37.0-47.0); HEMOGLOBIN 10.1 gm/dL (12.0-15.0); MCH 27.1 pg (26.0-34.0); MCHC 31.9 g/dL (28.0-37.0); MCV 84.8 fL (80.0-100.0); RBC 3.73 mil/uL (4.20-5.00); RDW 16.9 % (10.5-14.5); WBC 5.1 thou/uL (4.0-11.0)
[2021-08-26 05:46] LABS: CALCIUM 8.1 mg/dL (8.5-10.1); CREATININE 0.9 mg/dL (0.6-1.0); POTASSIUM 3.4 mmol/L (3.5-5.1)
[2021-08-26 08:03] VITALS: BP 127/77
--- NOTE | 2021-08-26 12:15 | NUR ---
CALLED REPORT TO 4S RN, UNSUCCESSFUL AT [facility] REPORT ATT, WILL CALL BACK IN 5- 10 MINS
[2021-08-26 13:02] VITALS: BP 156/76
[2021-08-26 14:46] LABS: INR 2.96; PROTIME 30.6 Seconds (10.5-12.1)
--- NOTE | 2021-08-26 15:00 | NUR ---
[facility] CM REVIEWED CHART AND SPOKE WITH CARE TEAM. PT AHD BEEN IN EROBS 170-9 AND TRANSFERED TO 440. CM ATTEMPTED TO VISIT WITH PT AT BEDSIDE THIS DAY. PT APPEARED TO BE A&O X4. CM ROLE INTRODUCED. PT INDICATED SHE HAD JUST GOTTEN OUT OF ER AND STATED SHE DIDN'T WANT TO DO THIS RIGHT NOW. CM INDICATED IF SHE DIDN'T MIND IT'S ONLY A FEW QUESTIONS. SHE CONSENTED. SHE INDICATED SHE RESIDES IN A HOUSE WITH HER SPOUSE AND ADULT DTR. CM ASKED IF PT HAD ANY STEPS TO ENTER AND THEN SHE STATED SHE DIDN'T WANT TO PROCEEDE WITH ASSESSMENT. CM THANKED PT, INDICATED THAT CM WOULD NOTIFY NURSE THAT IV WAS BEEPING AND THAT CM WOULD FOLLOW UP AND LEFT ROOM. BASED ON CHART REVIEW PT HAD BEEN HERE LAST 01/30/21. FROM HOME WITH SPOUSE AND DTR. 8 STEPS TO ENTER 8 STEPS INSIDE. INDEPEDNENT WITH GAIT AND ADLS. NO DME. HH 10-14 YRS AGO BUT NOTHING RECENT. PT HAD RETURNED HOME TO SELF CARE LAST ADMISSION. GI CONSULTED/ PT IS ON LEVAQUIN AND FLAGYL. CM FOLLOWING SHOULD ANY DC NEEDS ARISE.
--- NOTE | 2021-08-26 15:49 | NUR ---
TOOK OVER CARE FOR PATIENT FROM ED. PATIENT WAS COMPLAINING OF PAIN 7-8/10 AND VERY ANXIOUS. VS WERE ALL WITHIN NORMAL LIMITS BESIDES BLOOD PRESSURE WHICH WAS ELEVATED TO THE 160 SYS. ADMINSTERED PAIN AND ANTI ANXIETY MEDS TO PATIENT AND RESTARTED IV FLUIDS ON PUMP. CONSULTED IV TEAM AND HAD SECOND IV PLACED IN RIGHT AC.
[2021-08-26 16:22] VITALS: BP 153/73
[2021-08-26 20:03] VITALS: BP 135/61
--- NOTE | 2021-08-27 05:15 | NUR ---
RECEIVED CARE OF THIS PATIENT AT 1900. PATIENT ALERT AND ORIENTED X4. PATIENT ANXIOUS ABOUT HER HOME MEDS. ALSO ABOUT THE IV IN HER NECK. PATIENT UP TO THE BSC. C/P PAIN, MED GIVEN. SLEPT OFF AND ON DURING NIGHT.
[2021-08-27 07:50] VITALS: BP 132/61
--- NOTE | 2021-08-27 08:21 | NUR ---
ASSUMED CARE FOR PATIENT THIS AM. NO COMPAINTS AT THIS TIME. NO EPISODES OF STOOL REPORTED FROM RN OR PATIENT OVERNIGHT. PATIENT IS RESTING IN BED WILL ASK ON ROUNDS THIS MORNING ABOUT HOME MEDICATION THAT NEEDS TO BE ORDERED.
[2021-08-27 10:27] LABS: HEMATOCRIT 28.9 % (37.0-47.0); HEMOGLOBIN 9.4 gm/dL (12.0-15.0); MCH 27.3 pg (26.0-34.0); MCHC 32.6 g/dL (28.0-37.0); MCV 83.6 fL (80.0-100.0); RBC 3.46 mil/uL (4.20-5.00); RDW 17.5 % (10.5-14.5); WBC 7.1 thou/uL (4.0-11.0)
[2021-08-27 10:39] LABS: CALCIUM 8.6 mg/dL (8.5-10.1); CREATININE 0.8 mg/dL (0.6-1.0)
[2021-08-27 10:40] LABS: INR 2.69
[2021-08-27 15:20] VITALS: BP 135/68
[2021-08-27 20:09] VITALS: BP 175/80
[2021-08-28 05:17] LABS: HEMATOCRIT 27.9 % (37.0-47.0); HEMOGLOBIN 9.4 gm/dL (12.0-15.0); MCH 27.9 pg (26.0-34.0); MCHC 33.5 g/dL (28.0-37.0); MCV 83.2 fL (80.0-100.0); RBC 3.36 mil/uL (4.20-5.00); WBC 7.1 thou/uL (4.0-11.0)
[2021-08-28 05:37] LABS: PROTIME 13.8 Seconds (10.5-12.1)
[2021-08-28 05:48] LABS: INR 1.28
[2021-08-28 05:59] LABS: ALBUMIN 2.8 g/dL (3.4-5.0); CREATININE 0.8 mg/dL (0.6-1.0)
[2021-08-28 06:10] LABS: POTASSIUM 2.5 mmol/L (3.5-5.1)
--- NOTE | 2021-08-28 07:47 | NUR ---
RECEIVED CARE OF THIS PATIENT AT 1900. PATIENT ALERT AND ORIENTED X4. UP AD LAINE. UP TO BSC SEVERAL TIMES TONIGHT D/T BOWEL PREP FOR COLONOSCOPY. C/O PAIN, MED GIVEN. IV PATENT IN R UPPER ARM WITH FLUIDS INFUSING. ALSO HAS A REJ. NPO SINCE FOR PROCEDURE TODAY. K+ WAS CRITICALLY LOW, HOSPITALIST NOTIFIED AND ORDERS RECEIVED. FIRST DOSE STARTED. SLEPT VERY LITTLE THIS SHIFT.
[2021-08-28 08:00] VITALS: BP 150/73
[2021-08-28 08:18] VITALS: BP 150/73
--- NOTE | 2021-08-28 12:57 | NUR ---
SW reviewed chart and spoke with nursing and attending physician. Pt currently off the unit having colonoscopy. Discharge home is anticipate for tomorrow. No discharge needs identified at this time. SW is available to assist should needs arise.
[2021-08-28 15:48] VITALS: BP 135/99
[2021-08-28 20:32] VITALS: BP 152/71
--- NOTE | 2021-08-29 06:29 | NUR ---
PATIENT AOX4 MAKES NEEDS KNOWN. PATIENT NEEDS STAND BY ASSIST WITH ADL, BED MOBILITY, TRANSFER AND TOILETING. PAIN CONTROLLED THIS SHIFT. PATIENT IN BED ASLEEP AT THIS TIME BREATHING REGULAR AND UNLABOURED.
[2021-08-29 07:54] VITALS: BP 179/87
[2021-08-29] MEDS ORDERED: METRONIDAZOLE500 M4 PO (10:15)
[2021-08-29] MEDS ORDERED: LEVOFLOXACIN500 MG PO (10:15)
[2021-08-29] MEDS ORDERED: PREDNISONE 20 M20 M1 PO (10:15)
--- NOTE | 2021-08-29 18:00 | NUR ---
Patient is A&Ox4 and makes needs known. Patient voicing pain on abdomen and flank area relieved by prn morphine. patient started having loose stools post lunch. Req. imodium; providing relief thus far. Patient given choice to stay one more night but discharge orders are in. Patient plans on leaving tomorrow morning. IVF infusing with no issues. Tranfers SBA to BSC with no issues. Patient educated to call for assistance if needed.
[2021-08-29 20:00] VITALS: BP 150/69
--- NOTE | 2021-08-30 03:58 | NUR ---
ASSUMED PT CARE THIS PM. PT IS ALERT AND ORIENTED X4. PT C/O PAIN WHICH WAS MANAGED BY PRN MEDS. PT HAS EXTERNAL JUGULAR AND ARVIN PIV WITH NO SIGN OF REDNESS OR SWELLING. PT IS ON RA. PT DID NOT VERBALIZE ANY OTHER CONCERNS. FALL PRECAUTIONS IN PLACE. WILL CONTINUE TO MONITOR.
[2021-08-30 07:45] VITALS: BP 167/81
[2021-08-30 09:56] VITALS: BP 167/81
== END 2021-08-30 11:14 | disposition still patient (30) | DRG 386 ==
LOC: ER 16:38 → 4S 21:29 → EROBS 21:29 → 4S 08-26 13:24
PROVIDERS: Nurse Practitioner; Nurse Practitioner Family; Student in an Organized Health Care Education/Training Program; ADMIT Hospitalist; ATTEND Hospitalist
DX: K50.919 Crohn's disease, unspecified, with unspecified complications (principal); D68.9 Coagulation defect, unspecified; K92.1 Melena; E87.6 Hypokalemia; E16.2 Hypoglycemia, unspecified; D64.9 Anemia, unspecified; Z20.822 Contact with and (suspected) exposure to COVID-19; Z96.653 Presence of artificial knee joint, bilateral; F41.9 Anxiety disorder, unspecified; E03.9 Hypothyroidism, unspecified; F32.9 Major depressive disorder, single episode, unspecified; G89.29 Other chronic pain; M54.9 Dorsalgia, unspecified; E86.0 Dehydration; M81.0 Age-related osteoporosis without current pathological fracture; Z88.1 Allergy status to other antibiotic agents; Z88.8 Allergy status to other drugs, medicaments and biological substances; Z90.49 Acquired absence of other specified parts of digestive tract; Z86.73 Personal history of transient ischemic attack (TIA), and cerebral infarction without residual deficits; Z79.01 Long term (current) use of anticoagulants; Z79.82 Long term (current) use of aspirin; Z79.899 Other long term (current) drug therapy
CPT/HCPCS: 10102; 62110; 62900; 70005